=== PATIENT | female | born 1990 | race Caucasian/White ===

== ENCOUNTER 2024-07-15 12:16 | Outpatient (CLI) | payer MEDICARE, OTHER ==
--- NOTE | 2024-07-16 05:49 | RADIOLOGY REPORT ---
CLINICAL INDICATION: POSSIBLE COCCYX OSTEOMYELITIS, NON CON ONLY 1 KIDNEY COMPARISON: None TECHNIQUE: Multiplanar, multisequence MRI of the pelvis (musculoskeletal protocol) was performed wit hout intravenous contrast. CONTRAST: None INTERPRETATION: Bones: There is T1 hypointensity in the coccyx with corresponding edema, adjacent to soft tissue swel ling. This is consistent with osteomyelitis. No acute fracture. There are serpiginous curvilinear mi xed T2 hyperintense, T2 hyperintense foci in the bilateral femoral heads consistent with avascular ne crosis in the bilateral femoral heads. No articular collapse. Mild bilateral hip joint space narrowin g. Small bilateral hip joint effusions. Soft tissues: Soft tissue swelling in the region of the coccyx. No obvious fluid collection. There i s free fluid in the pelvis. No high-grade tendon injury. Muscles are normal in bulk and signal charac teristics in the pelvis. IMPRESSION: 1. Osteomyelitis in the coccyx with cellulitis of the overlying soft tissues. 2. 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 No articular collapse.
== END 2024-07-15 23:59 | disposition home or self-care (01) ==
LOC: MRI02 12:16
PROVIDERS: ATTEND Emergency Medicine
DX: M46.28 Osteomyelitis of vertebra, sacral and sacrococcygeal region (principal); M25.452 Effusion, left hip; M25.451 Effusion, right hip; M25.852 Other specified joint disorders, left hip; M25.851 Other specified joint disorders, right hip; M53.3 Sacrococcygeal disorders, not elsewhere classified; M87.059 Idiopathic aseptic necrosis of unspecified femur; L03.818 Cellulitis of other sites; R60.9 Edema, unspecified
CPT/HCPCS: 72195